=== PATIENT | female | born 1975 | race Caucasian/White ===

== ENCOUNTER 2017-01-23 05:48 | Inpatient (IN) | payer BC ==
[~2017-01-23] VITALS: Ht 172.7 cm; Wt 98.2 kg
[~2017-01-23 05:48] MED LIST: IBREN600 MG PO; NO HOME MEDICATIONS; PERCOCET 325 MG1 TA2 PO; PRENATAL1 TA2 PO; SENOKOT S 50 MG1 TAB PO
[2017-03-22] VITALS (19 sets, daily range): BP systolic 101–135; BP diastolic 52–90; PULSE 64–99; TEMP 98–98.4
[2017-03-22 06:02] LABS: BASO % 0.4 % (0.0-2.0); EOS # 0.1 (0.0-0.7); EOS % 0.8 % (0-4.0); GRAN # 7.2 (1.4-6.5); GRAN % 66.9 % (42.2-75.2); LYMPH # 2.8 (1.2-3.4); LYMPH % 26.4 % (20.0-51.0); MEAN CELL VOLUME 86 fl (80.0-100.0); MEAN CORPUSCULAR HGB CONC 33 g/dl (33.0-37.0); MEAN PLATELET VOLUME 10.7 fl (7.4-10.4); MONO # 0.6 (0.1-0.6); MONO % 5.1 % (1.7-9.3); PLATELET COUNT 202 K/mm3 (130-400); RED BLOOD COUNT 3.81 M/mm3 (4.10-5.30); REDCELL DISTRIBUTION WIDTH-CV 14.9 % (11.5-14.5); WHITE BLOOD COUNT 10.8 K/mm3 (4.8-10.8)
[2017-03-22 06:03] LABS: HEMATOCRIT 32.7 % (37.0-47.0); HEMOGLOBIN 10.9 g/dl (12.5-16.0); MEAN CORPUSCULAR HEMOGLOBIN 29 pg (27.0-31.0)
[2017-03-22] MEDS ORDERED: PRENATAL (06:33)
[2017-03-23 01:30] VITALS: BP 106/73; PULSE 78; TEMP 98.8
[2017-03-23 06:07] LABS: HEMATOCRIT 28.7 % (37.0-47.0); HEMOGLOBIN 9.3 g/dl (12.5-16.0)
[2017-03-23 06:30] VITALS: BP 121/66; PULSE 89; TEMP 98.4
[2017-03-23] MEDS ORDERED: IBU600 MG PO (08:21)
[2017-03-23] MEDS ORDERED: PERCOCET 325 MG1 TA2 PO (08:22)
[2017-03-23 16:20] VITALS: BP 121/71; PULSE 82; TEMP 98.3
[2017-03-23 21:15] VITALS: BP 117/65; PULSE 80; TEMP 98.9
[2017-03-24 07:20] VITALS: BP 111/67; PULSE 80; TEMP 98.4
== END 2017-03-24 11:30 | disposition home or self-care (01) | DRG 766 ==
LOC: OB 03-22 05:26 → LDRO 03-29 05:47 → EDSTATUS 03-29 06:34 → OB 03-29 06:36
PROVIDERS: Obstetrics & Gynecology
PROC: 10D00Z1 Extraction of Products of Conception, Low, Open Approach (ICD-10-PCS; principal; 2017-03-22)
DX: O34.211 Maternal care for low transverse scar from previous cesarean delivery (principal); N85.8 Other specified noninflammatory disorders of uterus; O24.420 Gestational diabetes mellitus in childbirth, diet controlled; Z3A.39 39 weeks gestation of pregnancy; Z37.0 Single live birth
CPT/HCPCS: J0690; J1885; J2270; J2370; J2405; J2590; J7120